=== PATIENT | female | born 1995 | race Caucasian/White ===

== ENCOUNTER 2017-05-11 19:11 | Emergency (ER) | payer OTHER ==
[~2017-05-11] VITALS: Ht 162.6 cm; Wt 61.2 kg
--- NOTE | 2017-05-11 19:54 | PHYS DOC ---
General Chief Complaint: FEVER Stated Complaint: N/V/F Time Seen by MD: 19:40 Problems: History of Present Illness Initial Comments Patient is a 22-year-old female who comes to the ED complaining of nausea and vomiting. Patient states that she was feeling well until yesterday evening she developed nausea chills and sweats. She states that she had one episode of nonbloody vomiting and went to bed. She awoke in the night with a further episode of nausea and vomiting and has been unable to keep anything down throughout the day today. She denies any focal abdominal pain complaints, she states that her roommate has been sick with similar symptoms this past week and have resolved. She denies any travel or bad food exposure and her past medical history is negative. Last menstrual period was 3 weeks ago she denies possibility of . Otherwise last bowel movement was a few days ago that is her custom to go several days between bowel movements. She denies any urinary symptoms she' s had a mild global headache especially when up and walking around no neck stiffness or rash. [facility] where her temperature was reportedly measured at 103.3 Fahrenheit, she was sent to this facility for further evaluation on arrival is afebrile. On arrival she denies nausea she denies any abdominal discomfort but she fears taking anything by mouth as she is certain she will get sick. Timing/Duration: 24 hours Severity: moderate Modifying Factors: worse with eating Associated Symptoms: fever/chills, headaches, nausea/vomiting Allergies: Coded Allergies: No Known Drug Allergies (Unverified , 05/11/17) Past Medical History Medical History: no pertinent history Surgical History: other (wisdom teeth) LMP (Females 10-50): 3 weeks Social History Smoker: non-smoker Alcohol: none Drugs: none Review of Systems Constitutional: see HPI Respiratory: denies cough, denies shortness of breath Cardiovascular: denies chest pain, denies palpitations Gastrointestinal: see HPI Genitourinary: denies dysuria, denies frequency, denies hematuria Musculoskeletal: denies back pain, denies joint swelling, muscle pain, denies neck pain Skin: denies rash Psychiatric/Neurological: headache, denies numbness, denies paresthesia, denies weakness Hematologic/Lymphatic: denies blood clots, denies easy bleeding, denies easy bruising Physical Exam General Appearance: WD/WN, no apparent distress Ear, Nose, Throat: hearing grossly normal, normal ENT inspection (dry mucous membranes), normal pharynx Neck: non-tender, full range of motion, supple Respiratory: normal breath sounds, no respiratory distress Cardiovascular: normal peripheral pulses, regular rate, rhythm Gastrointestinal: soft (generalized muscle tenderness without focality, negative Johnston negative McBurney abdomen is nondistended no masses are palpated bowel sounds are normal) Rectal: deferred Back: no CVA tenderness, no vertebral tenderness Extremities: non-tender, normal inspection 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 Urine studies checked and recheck. Labs are unremarkable no urine studies are available yet as the patient has not submitted a specimen 3: Patient rechecked her color has improved she states her nausea has completely resolved. I discussed a by mouth challenge patient and family feel they're ready to go now. I did take her some water and asked her to take some small sips but agreed to go ahead and get her discharge ready pending nothing changed Departure Time of Disposition: 20:34 Disposition: 01 HOME, SELF-CARE Diagnosis: gastroenteritis Condition: IMPROVED Patient Instructions: Viral Gastroenteritis, [id number] Additional Instructions: School and work note given for May 12 and . Clear liquids tonight, advance to bland diet tomorrow as tolerated. Aggressive hydration with Gatorade and water. Prescription: Zofran ODT, dicyclomine Follow-up with your doctor on Thursday if not better. Return to ED with new or changing symptoms. ALEJANDRO AMOR DO May 11, 2017 19:54
[2017-05-11] MEDS ORDERED: FAMOTIDINE 20 MG/2 ML VIAL IVP ONE (20:00)
[2017-05-11] MEDS ORDERED: IV NORMAL SALINE 1,000ML 1,000 ML IV SCH (20:00)
[2017-05-11] MEDS ORDERED: ONDANSETRON PF 4 MG/2 ML VIAL. IV ONE (20:00)
[2017-05-11 20:04] LABS: BASO % 1 % (0-3); EOS % 0 % (0-3); HEMATOCRIT 40.7 % (36.0-47.0); HEMOGLOBIN 14.3 g/dL (12.0-15.5); LYMPH # 0.7 x10^3/uL (1.0-4.8); LYMPH % 11 % (24-48); MEAN CORPUSCULAR HEMOGLOBIN 29 pg (25-35); MEAN CORPUSCULAR HGB CONC 35 g/dL (31-37); MEAN CORPUSCULAR VOLUME 83 fL (79-100); MONO # 0.5 x10^3/uL (0.0-1.1); MONO % 8 % (0-9); NEUT # 4.8 x10^3uL (1.8-7.7); NEUT % 80 % (31-73); PLATELET COUNT 217 x10^3/uL (140-400); RED BLOOD COUNT 4.88 x10^6/uL (3.50-5.40); RED CELL DISTRIBUTION WIDTH 12.8 % (11.5-14.5)
[2017-05-11 20:06] LABS: ALBUMIN 3.9 g/dL (3.4-5.0); ALBUMIN/GLOBULIN RATIO 1.1 (1.0-1.7); CALCIUM 8.9 mg/dL (8.5-10.1); GFR 70.7; TOTAL BILIRUBIN 0.9 mg/dL (0.2-1.0); TOTAL PROTEIN 7.5 g/dL (6.4-8.2)
[2017-05-11 20:07] LABS: POTASSIUM 3.9 mmol/L (3.5-5.1)
[2017-05-11] MEDS ORDERED: ONDA4TAB10 PO (20:38)
[2017-05-11] MEDS ORDERED: DICY20TA3 PO (20:38)
[2017-05-11 20:44] LABS: BILIRUBIN,URINE NEG (NEG); CLARITY,URINE HAZY; COLOR,URINE YELLOW; GLUCOSE,URINE NEG (NEG)
[2017-05-11 20:45] LABS: NITRITE,URINE NEG (NEG); UROBILINOGEN,URINE 2 mg/dL (0.2 mg/dL)
[2017-05-11] MEDS ORDERED: ONDANSETRON 4MG ODT 4TABLET STARTPACK. PO ONE (20:45)
[2017-05-11 20:46] LABS: BACTERIA,URINE MANY /HPF (0-FEW); SQUAMOUS EPITHELIAL CELL,UR MANY /LPF
[2017-05-11 20:55] VITALS: BP 120/63
== END 2017-05-11 20:58 | disposition home or self-care (01) ==
LOC: ER 19:11
DX: K52.9 Noninfective gastroenteritis and colitis, unspecified (principal); R51 Headache
CPT/HCPCS: 36415; 80053; 81001; 83690; 85025; 87086; 96374; 96375; 99284; J2405; Q0162; S0028; J7030